=== PATIENT | male | born 1960 | race Caucasian/White ===

== ENCOUNTER 2019-11-26 12:25 | Outpatient (REF) | payer MEDICAID, SELFPAY ==
[2019-11-26 22:09] LABS: ALT 32 U/L (16-63); AST 20 U/L (15-37); Albumin 4.2 g/dL (3.4-5.0); Alkaline Phosphatase 74 U/L (46-116); Anion Gap 9.8 mmol/L (3-11); BUN 12 mg/dL (7-18); Bilirubin, Total 0.6 mg/dL (0.2-1.0); CO2 29.2 mmol/L (21.0-32.0); CREATININE 0.98 mg/dL (0.70-1.30); Calcium 9.5 mg/dL (8.5-10.1); Calculated LDL 92 mg/dL (<100); Chloride 103 mmol/L (98-107); Cholesterol 155 mg/dL (<200); Glucose 78 mg/dL (74-106); HDL Cholesterol 32 mg/dL (40-60); Potassium 4.8 mmol/L (3.5-5.1); Sodium 142 mmol/L (136-145); Total Protein 7.9 g/dL (6.4-8.2); Triglyceride 158 mg/dL (<150)
[2019-11-28 11:45] LABS: HBs Antibody, Quant <3.1 mIU/mL (See Note); Hepatitis B Surface Ab Negative (See Note); Hepatitis C Ab w Rflx HCV PCR Negative (Negative)
== END 2019-11-26 12:45 ==
LOC: NCHCN 12:25
PROVIDERS: Visit Provider Nurse Practitioner Family
DX: I10 Essential (primary) hypertension (principal); K43.1 Incisional hernia with gangrene; Z11.59 Encounter for screening for other viral diseases
CPT/HCPCS: 80053; 80061; 86706; 86803

== ENCOUNTER 2019-12-27 21:04 | Outpatient (REF) | payer MEDICAID, SELFPAY ==
[2019-12-27 22:04] LABS: COMMENT (LAB VIEW ONLY) 65.46 mg/dL; Microalb ug/mg Crea 26.6 ug/mg Cr
== END 2019-12-27 21:24 ==
LOC: NCHCN 21:04
PROVIDERS: Visit Provider Nurse Practitioner Family
DX: I10 Essential (primary) hypertension (principal)
CPT/HCPCS: 82043; 82570

== ENCOUNTER 2021-04-20 12:31 | Outpatient (REF) | payer BC, SELFPAY ==
[2021-04-20 20:47] LABS: Microalb ug/mg Crea 27.4 ug/mg Cr
[2021-04-20 20:57] LABS: Anion Gap 10.9 mmol/L (3-11); BUN 17 mg/dL (7-18); CO2 27.1 mmol/L (21.0-32.0); CREATININE 1.1 mg/dL (0.70-1.30); Calcium 9.4 mg/dL (8.5-10.1); Calculated LDL 82 mg/dL (<100); Chloride 103 mmol/L (98-107); Cholesterol 158 mg/dL (<200); Glucose 106 mg/dL (74-106); HDL Cholesterol 34 mg/dL (40-60); Potassium 4.3 mmol/L (3.5-5.1); Sodium 141 mmol/L (136-145); Triglyceride 212 mg/dL (<150)
== END 2021-04-20 12:32 | disposition home or self-care (01) ==
LOC: NCHCN 12:31
PROVIDERS: Visit Provider Nurse Practitioner Family
DX: I10 Essential (primary) hypertension (principal); E78.5 Hyperlipidemia, unspecified
CPT/HCPCS: 80048; 80061; 82043; 82570

== ENCOUNTER 2025-07-25 12:29 | Outpatient (REF) | payer OTHER, SELFPAY ==
[2025-07-28 16:13] LABS: Anion Gap 8.0 mmol/L (3-11); BUN 22 mg/dL (7-18); CO2 29.0 mmol/L (21.0-32.0); Calcium 9.1 mg/dL (8.5-10.1); Chloride 101 mmol/L (98-107); Estimated GFR 74.04 (mL/min/1.73m2); Glucose 87 mg/dL (74-106); Potassium 4.2 mmol/L (3.5-5.1); Sodium 138 mmol/L (136-145)
== END 2025-07-25 12:30 | disposition home or self-care (01) ==
LOC: NCHCN 12:29
PROVIDERS: Visit Provider Family Medicine
DX: I10 Essential (primary) hypertension (principal)
CPT/HCPCS: 80048